=== PATIENT | male | born 1995 | race Caucasian/White ===

== ENCOUNTER 2018-03-04 20:39 | Inpatient (IN) | payer OTHER ==
[~2018-03-04] VITALS: Ht 185.4 cm; Wt 86.4 kg
--- NOTE | ~2018-03-04 | EKG ---
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
--- NOTE | ~2018-03-04 | HC ---
[facility] [place] [address] CONSULTATION Name: ODILON CASIANO Room #: 355-[facility] IN M.R.#: [id number] Admission: 03/04/18 Attend Phys: Vee Bradley MD Discharge: 03/06/18 Date of : [birth year] Report #: [id number] THIS REPORT FOR: //name// CC: Jhoan Bradley REASON FOR CONSULTATION: Hyponatremia. HISTORY OF PRESENT ILLNESS: I am not really sure how accurate this history of present illness is as the patient has schizophrenia. He was brought from his [facility] with what was described as seizure. This was reported by the staff. He reported no previous medical problems other than schizophrenia for which he is maintained on appropriate antipsychotic medications including haloperidol and ____. No previous issues with sodium, however, he reported to excessive water intake on a regular basis. On presentation, he was found to have a sodium of 117 and I was consulted to manage his medical issues. MEDICATIONS: 1. Vitamin D3. 2. Oxcarbazepine. 3. Trazodone. 4. Haldol. 5. Invega. 6. Lorazepam. 7. ____. PAST MEDICAL HISTORY: Schizophrenia. SOCIAL HISTORY: Resides in a nursing facility. No drug or alcohol abuse; however, he continues to smoke. FAMILY HISTORY: Unknown. REVIEW OF SYSTEMS: GENERAL: No fever or chills. CARDIOVASCULAR: No chest pain or palpitation. PULMONARY: No cough or hemoptysis. GASTROINTESTINAL: No nausea or vomiting. GENITOURINARY: No frequency, urgency. NEUROLOGIC: As per history of present illness. SKIN: No rash or ulcerations. PHYSICAL EXAMINATION: GENERAL: Alert, oriented, in no apparent distress. VITAL SIGNS: Blood pressure 110/66, temperature 36.8. HEAD AND NECK: No jugular venous distention, no bruit, no thyromegaly. CHEST: Clear to auscultation bilaterally. [facility] [address] [place] [address] CONSULTATION Name: ODILON CASIANO Room #: 355-P [facility]#: [id number] Admission: 03/04/18 Attend Phys: Vee Bradley MD Discharge: 03/06/18 Date of : [birth year] Report #: [id number] CARDIOVASCULAR: Regular with no rub detected. ABDOMEN: Soft, nontender with no hepatosplenomegaly. LOWER EXTREMITIES: No edema with intact peripheral pulses. LABORATORY DATA: Reviewed. Sodium is up to 124 from 117. Hemoglobin 13. ASSESSMENT, IMPRESSION AND PLAN: Hyponatremia due to compulsive water drinking exacerbated by antipsychotic medications. 1. Discontinue IV fluid. 2. Sodium has picked up nicely. 3. Water restrictions. 4. Continue to hold his antipsychotic medications. 5. Expect his sodium to fully correct within the next 24 hours. <ELECTRONICALLY SIGNED> By: Violetta De Jesus MD 03/09/18 0820 0845 43 Violetta De Jesus MD /mi
[2018-03-04 20:40] VITALS: BP 112/75
[2018-03-04] MEDS ORDERED: FLONASE 0.05%50 MCG NASAL (20:49)
[2018-03-04 20:50] LABS: WBC 6.2 thou/uL (4.0-11.0)
[2018-03-04] MEDS ORDERED: VITAMIN D2000 UNIT PO (20:51)
[2018-03-04] MEDS ORDERED: PALIPERIDONE ER6 MG PO (20:51)
[2018-03-04] MEDS ORDERED: OXTELLAR XR600 MG PO (20:52)
[2018-03-04] MEDS ORDERED: AMBIEN 5 MG TABL5 M1 PO (20:52)
[2018-03-04] MEDS ORDERED: TRAZODONE HCL100 MG PO (20:52)
[2018-03-04 20:53] LABS: BASOPHILS 0.7 % (0.0-2.0); EOSINOPHILS 0.9 % (0.0-3.0); LYMPHOCYTES 26.3 % (24.0-44.0); MCV 85.1 fL (80.0-100.0); PLATELET COUNT 205 thou/uL (150-400); POLYS 64.1 % (36.0-66.0); RBC 4.19 mil/uL (4.50-6.00); RDW 12.2 % (10.5-14.5)
[2018-03-04] MEDS ORDERED: HALOPERIDOL 5 MG5 MG PO (20:53)
[2018-03-04] MEDS ORDERED: INVEGA SUS156 MG/1 M IM (20:55)
[2018-03-04] MEDS ORDERED: HALOPERIDOL5 MG/1 M2 IM (20:55)
[2018-03-04] MEDS ORDERED: ATIVAN1 MG PO (20:56)
[2018-03-04 20:58] LABS: CALCIUM 8.9 mg/dL (8.5-10.1); CREATININE 0.8 mg/dL (0.7-1.3); POTASSIUM 3.9 mmol/L (3.5-5.1)
[2018-03-04 21:01] LABS: HEMATOCRIT 36.1 % (42.0-52.0); MCHC 36.1 g/dL (28.0-37.0)
[2018-03-04 21:43] LABS: URINE BILIRUBIN NEGATIVE (Negative); URINE BLOOD NEGATIVE (Negative); URINE CLARITY CLEAR; URINE COLOR YELLOW; URINE GLUCOSE-RANDOM* NEGATIVE (Negative); URINE KETONES TRACE (Negative); URINE LEUKOCYTES NEGATIVE (Negative); URINE NITRITE NEGATIVE (Negative); URINE PROTEIN (DIPSTICK) NEGATIVE (Negative); URINE UROBILINOGEN 0.2 E.U./dl (0.2-1.0)
[2018-03-04 21:49] LABS: URINE CREATININE-RANDOM* 22.9 mg/dL
[2018-03-04 22:35] VITALS: BP 132/75
[2018-03-04 22:47] VITALS: BP 132/75
[2018-03-04 23:16] VITALS: BP 129/84
[2018-03-05 00:02] LABS: CALCIUM 9.3 mg/dL (8.5-10.1); CREATININE 0.8 mg/dL (0.7-1.3); POTASSIUM 3.9 mmol/L (3.5-5.1)
[2018-03-05 01:17] LABS: AMP/METHAMP Negative (Negative); BARBITURATES Negative (Negative); BENZODIAZEPINES Negative (Negative); COCAINE Negative (Negative); METHADONE Negative (Negative); OPIATES Negative (Negative); PCP Negative (Negative)
[2018-03-05 03:11] LABS: CALCIUM 9.6 mg/dL (8.5-10.1); CREATININE 0.7 mg/dL (0.7-1.3); POTASSIUM 3.9 mmol/L (3.5-5.1)
[2018-03-05 05:18] VITALS: BP 115/76
[2018-03-05 06:24] LABS: CALCIUM 9.3 mg/dL (8.5-10.1); CREATININE 0.7 mg/dL (0.7-1.3); POTASSIUM 3.9 mmol/L (3.5-5.1)
[2018-03-05 07:19] VITALS: BP 110/66
[2018-03-05 09:30] LABS: CALCIUM 9.8 mg/dL (8.5-10.1); CREATININE 0.8 mg/dL (0.7-1.3); POTASSIUM 4.5 mmol/L (3.5-5.1)
[2018-03-05 18:59] VITALS: BP 131/77
[2018-03-06 03:21] VITALS: BP 116/66
[2018-03-06 06:30] LABS: ALBUMIN 4.4 g/dL (3.4-5.0); CALCIUM 9.5 mg/dL (8.5-10.1); POTASSIUM 3.8 mmol/L (3.5-5.1)
[2018-03-06 07:45] VITALS: BP 130/70
[2018-03-06 11:37] VITALS: BP 110/58
== END 2018-03-06 17:36 | DRG 640 ==
LOC: ER 20:39 → 3W 22:50 → EROBS 22:53 → 3W 22:53
PROVIDERS: Hospitalist; Nurse Practitioner Family; Student in an Organized Health Care Education/Training Program
DX: E87.1 Hypo-osmolality and hyponatremia (principal); G93.41 Metabolic encephalopathy; R56.9 Unspecified convulsions; F20.9 Schizophrenia, unspecified; F17.210 Nicotine dependence, cigarettes, uncomplicated; T43.595A Adverse effect of other antipsychotics and neuroleptics, initial encounter; Z88.1 Allergy status to other antibiotic agents; Z79.899 Other long term (current) drug therapy; Y92.89 Other specified places as the place of occurrence of the external cause
CPT/HCPCS: 10879

== ENCOUNTER 2020-08-29 20:28 | Emergency (ER) | payer OTHER ==
[~2020-08-29] VITALS: Ht 182.9 cm; Wt 79.4 kg
[~2020-08-29 20:28] MED LIST: AMBIEN 5 MG TABL5 M1 PO; ATIVAN1 MG PO; FLONASE 0.05%50 MCG NASAL; HALOPERIDOL 5 MG5 MG PO; HALOPERIDOL5 MG/1 M2 IM; INVEGA SUS156 MG/1 M IM; OXTELLAR XR600 MG PO; PALIPERIDONE ER6 MG PO; TRAZODONE HCL100 MG PO; VITAMIN D2000 UNIT PO
[2020-08-29 22:21] VITALS: BP 135/81
== END 2020-08-29 22:21 | disposition home or self-care (01) ==
LOC: ER 20:28
DX: S01.112A Laceration without foreign body of left eyelid and periocular area, initial encounter (principal); F20.9 Schizophrenia, unspecified; Z79.899 Other long term (current) drug therapy; Z88.1 Allergy status to other antibiotic agents; Y08.89XA Assault by other specified means, initial encounter; Y93.89 Activity, other specified; Y92.89 Other specified places as the place of occurrence of the external cause; Y99.8 Other external cause status